=== PATIENT | female | born 1990 | race Caucasian/White ===

== ENCOUNTER 2016-10-05 19:13 | Emergency (ER) | payer BC ==
--- NOTE | 2016-10-05 19:29 | EDPHY ---
H & P Stated Complaint: flu symptoms HPI/ROS: CHIEF COMPLAINT: "I'm guessing it's just the flu" HISTORY OF PRESENT ILLNESS: The patient is a 26 y/o female complaining of a fever for the last 3 days. She has been using Tylenol and ibuprofen for her fever and feels like she is getting worse. Her last dose of 400mg Advil was at 18:15, about an hour prior to arrival in the ED. She complains of associated headache, lateral neck pain when turning her head, nausea, cough, sore throat, rash, and chills. She denies vomiting, though she endorses constipation over the last few days. No recent travel. She reports she has "immunodysregulation" that causes fluctuation of her IgA and IgG without a clear diagnosis that leads to frequent illnesses. She did receive a flu vaccination this season. REVIEW OF SYSTEMS: A ten point review of systems was performed and is negative with the exception of the items mentioned in the HPI. Chronic constipation. Source: Patient Exam Limitations: No limitations - Personal History LMP (Females 10-55): 1-7 Days Ago Current Tetanus/Diphtheria Vaccine: Yes Current Tetanus Diphtheria and Acellular Pertussis (TDAP): Yes - Medical/Surgical History PMH: Immunodysregulation without clear autoimmune diagnosis. Hx Asthma: No Hx Chronic Respiratory Disease: No Hx Diabetes: No Hx Cardiac Disease: No Hx Renal Disease: No Hx Cirrhosis: No Hx Alcoholism: No Hx HIV/AIDS: No Hx Splenectomy or Spleen Trauma: No Other PMH: immuno disregulation - Social History Smoking Status: Never smoked Additional Social History: Nonsmoker. No alcohol. No illicit drugs. 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 - Physical Exam Exam: General Appearance: Alert. Vital signs reviewed. Heart rate 114 at triage, 76 during assessment. Afebrile. Head: No sinus tenderness. Eyes: Pupils equal and round, no conjunctival injection, no discharge. Anicteric. ENT, Mouth: Mucous membranes are moist, no oropharyngeal erythema or edema. Neck: Tenderness over anterior cervical lymph nodes with mild lymphadenopathy, supple, negative Kernig's and Brudzinski's. Respiratory: Lungs are clear to auscultation; no wheezes, rales, or rhonchi. Cardiovascular: Tachycardic; no murmur, rub, or gallop. Gastrointestinal: Abdomen is soft with diffuse mild tenderness, no peritoneal signs.no masses or organomegaly, bowel sounds normal. Skin: Warm and dry, no rashes on exposed skin, normal color. Back: Nontender to palpation over the thoracolumbar spine. No CVAT. Extremities: No lower extremity edema, no calf tenderness or swelling. Neurological: Alert and oriented. Moving all four extremities easily and equally. CN 2-12 examined and intact (VA not tested). Strength 5/5 all major motor groups. Sensation intact to light touch over all four extremities. Psychiatric: Normal affect. Constitutional: Initial Vital Signs Temperature (C) 37.4 C 10/05/16 19:19 Heart Rate 114 H 10/05/16 19:19 Respiratory Rate 20 10/05/16 19:19 Blood Pressure 107/82 H 10/05/16 19:19 O2 Sat (%) 93 10/05/16 19:19 O2 Delivery Mode Room Air Allergies/Adverse Reactions: amoxicillin trihydrate [From Augmentin] Allergy (Verified 10/05/16 19:17) potassium clavulanate [From Augmentin] Allergy (Verified 10/05/16 19:17) Home Medications: Medication Instructions Recorded Bcp 10/05/16 Lamictal 10/05/16 Sennosides 10/05/16 Medical Decision Making ED Course/Re-evaluation: Flu swab ordered. 650mg PO Tylenol administered. IV established. 1L IV NS administered. 2010: Patient's flu swab is positive for flu B. I've discussed this with her and recommended standard viral syndrome care instructions. She agrees with this plan. I doubt meningitis, but she has complained of headache in the setting of fever. No meningeal signs on exam and normal neuro exam. She and I discussed viral vs bacterial meningitis. She has had meningitis vaccine. We discussed lumbar puncture. She understands that meningitis could be ruled out/in with LP. Given that she is neurologically normal she states that she does not wish to proceed with LP. She is capable of making her own medical decisions and understands that bacterial meningitis is a deadly illness. 2129: Reassessed patient. She feels improved after 2L IV NS and 1 tab PO Vicodin for her headache and is ready to go home. Return precautions given. Vital signs WNL at NC. Differential Diagnosis: I considered a differential that includes but is not limited to influenza, other viral syndrome, meningitis (viral and bacterial), pharyngitis, and pneumonia. - Data Points Medications Given: Discontinued Medications Acetaminophen (Tylenol) 650 mg PO EDNOW ONE Stop: 10/05/16 19:47 Last Admin: 10/05/16 20:09 Dose: 650 mg Hydrocodone Bitart/Acetaminophen ([place] 5/325) 1 tab PO EDNOW ONE Stop: 10/05/16 21:09 Last Admin: 10/05/16 21:10 Dose: 1 tab Sodium Chloride (Ns) 1,000 mls @ 0 mls/hr IV ONCE ONE PRN Reason: Wide Open Stop: 10/05/16 19:46 Last Admin: 10/05/16 19:57 Dose: 1,000 mls Sodium Chloride (Ns) 1,000 mls @ 0 mls/hr IV ONCE ONE PRN Reason: Wide Open Stop: 10/05/16 20:59 Last Admin: 10/05/16 20:58 Dose: 1,000 mls Ondansetron HCl (Zofran Odt 4 Mg Prepack#2) 1 btl TAKEHOME EDNOW ONE Stop: 10/05/16 20:17 Last Admin: 10/05/16 21:04 Dose: 1 btl Departure - Departure Disposition: Home, Routine, Self-Care Clinical Impression: Influenza B, Viral syndrome Condition: Good Instructions: Influenza (ED), Viral Syndrome (ED) Additional Instructions: 1. Use Tylenol and ibuprofen as directed for fever and pain. 2. Increase fluid intake. 3. Use Zofran as prescribed if needed for nausea or vomiting. 4. Practice good hand hygiene and limit contact with others while you have a fever as you are contagious. 5. Follow up with your primary care provider for symptoms not improved over the next 1-2 weeks. Adult Pain & Fever Control: We recommend Acetaminophen (Tylenol) and Ibuprofen (Motrin,Advil) for pain and fever control. When fever is high or pain severe, both drugs can be used at the same time, but at different intervals. Please note the time differences. Your dose is: Acetaminophen 650mg every 4 to 6 hours Ibuprofen 600mg every 6-8 hours with food Note: do not take Acetaminophen with Hydrocodone (Vicodin, Lortab) or Oxycodone (Percocet). These medications also contain Acetaminophen. No more than 3000mg of Acetaminophen should be taken in 24 hours (for an adult). Referrals: [facility],. [Clinic] - As per Instructions MEHREEN SILVA [Medical Doctor] - As per Instructions Report Scribed for: Magaly aCbrera Report Scribed by: Adelaida Mabry Date of Report: 10/05/16 Time of Report: 19:32 Physician Review and Approval Statement: 10/05/16 19:28 Portions of this note were transcribed by the medical office scheduler. I, Dr. Magaly Cabrera, personally performed the history, physical exam, and medical decision- making; and confirmed the accuracy of the information in the transcribed note.
[2016-10-05] MEDS ORDERED: NS 1,000 ML IV ONE ×2 (19:45→20:58)
[2016-10-05] MEDS ORDERED: ACETAMINOPHEN 325 MG TAB PO ONE (19:46)
[2016-10-05] MEDS ORDERED: ONDANSETRON 4MG PREPACK#2 BTL TAKEHOME ONE (20:16)
[2016-10-05] MEDS ORDERED: HYDROCODONE/APAP 10/325 TAB ONE (21:08)
[2016-10-05] MEDS ORDERED: HYDROCODONE/APAP 5/325 TAB PO ONE (21:08)
[2016-10-05 21:54] VITALS: BP 112/79; PULSE 79; RESP 16; TEMP 97.9; O2SAT 94
== END 2016-10-05 21:54 | disposition home or self-care (01) ==
DX: J10.1 Influenza due to other identified influenza virus with other respiratory manifestations (principal); B34.9 Viral infection, unspecified

== ENCOUNTER 2017-04-24 13:32 | Emergency (ER) | payer BC ==
[2017-04-24 14:16] LABS: % IMMATURE GRANULYOCYTES 0.3 % (0.0-1.1); ABSOLUTE IMMATURE GRANULOCYTES 0.02 10^3/uL (0.00-0.10); ADD DIFF? NO; ADD MORPH? NO; ADD SCAN? NO; ATYPICAL LYMPHOCYTE FLAG 20 (0-99); FRAGMENT RBC FLAG 0 (0-99); HEMATOCRIT 42.7 % (38.0-47.0); HEMOGLOBIN 14.5 g/dL (12.6-16.3); LEFT SHIFT FLG 0 (0-99); LIPEMIA HEMOLYSIS FLAG 90 (0-99); MEAN CELL HEMOGLOBIN 29.7 pg (27.9-34.1); MEAN CELL VOLUME 87.3 fL (81.5-99.8); MEAN PLATELET VOLUME 9.8 fL (8.7-11.7); PLATELET CLUMPS FLAG 10 (0-99); PLATELET COUNT 259 10^3/uL (150-400); RED BLOOD CELL COUNT 4.89 10^6/uL (4.18-5.33); RED CELL DISTRIBUTION WIDTH 14.2 % (11.5-15.2)
[2017-04-24 14:18] LABS: COLOR AMBER; LEUKOCYTE ESTERASE,URINE NEGATIVE (NEGATIVE); NITRITE,URINE NEGATIVE (NEGATIVE)
--- NOTE | 2017-04-24 14:24 | EDPHY ---
H & P Stated Complaint: rlq abd pain Time Seen by Provider: 04/24/17 13:52 HPI/ROS: CHIEF COMPLAINT: Right lower quadrant pain HISTORY OF PRESENT ILLNESS: The patient presents to the ED with a 3 day history of constant slightly progressive right lower quadrant pain. The patient reports associated nausea but denies vomiting or fever. She has no complaints of vaginal bleeding, dysuria or vaginal discharge. The patient has no significant abdominal surgical history. The patient does have a history of mild IBS which typically results and symptoms of constipation which she takes a daily laxative for. The patient reports mild anorexia. She currently rates her pain as a 3/10. She denies any additional acute complaints. REVIEW OF SYSTEMS: A comprehensive 10 point review of systems is otherwise negative aside from elements mentioned in the history of present illness. Source: Patient Exam Limitations: No limitations - Personal History LMP (Females 10-55): 8-14 Days Ago Current Tetanus/Diphtheria Vaccine: Yes - Medical/Surgical History Hx Asthma: No Hx Chronic Respiratory Disease: No Hx Diabetes: No Hx Cardiac Disease: No Hx Renal Disease: No Hx Cirrhosis: No Hx Alcoholism: No Hx HIV/AIDS: No Hx Splenectomy or Spleen Trauma: No Other PMH: immuno disregulation - Social History Smoking Status: Never smoked - Physical Exam Exam: General Appearance: Alert, no distress Eyes: Pupils equal and round no pallor or injection ENT, Mouth: Mucous membranes moist Respiratory: There are no retractions, lungs are clear to auscultation Cardiovascular: Regular rate and rhythm Gastrointestinal: Tenderness to palpation in the right lower quadrant, positive Rovsing Neurological: A&O, normal motor function, normal sensory exam, normal cranial nerves Skin: Warm and dry, no rashes Musculoskeletal: Neck is supple nontender Extremities: symmetrical, full range of motion Constitutional: Initial Vital Signs Temperature (C) 36.9 C 04/24/17 13:44 Heart Rate 72 04/24/17 13:44 Respiratory Rate 17 04/24/17 13:44 Blood Pressure 98/64 L 04/24/17 13:44 O2 Sat (%) 97 04/24/17 13:44 O2 Delivery Mode Room Air Allergies/Adverse Reactions: amoxicillin trihydrate [From Augmentin] Allergy (Verified 04/24/17 13:44) potassium clavulanate [From Augmentin] Allergy (Verified 04/24/17 13:44) Home Medications: Medication Instructions Recorded Bcp 10/05/16 Lamictal 10/05/16 Sennosides 10/05/16 LYRICA 04/24/17 Medical Decision Making - Diagnostics Imaging Results: Imaging Impressions Abdomen Ultrasound 04/24/17 14:10 Impression: Appendix not visualized. No secondary signs of appendicitis in the visualized right lower quadrant. Dr. Dillon discussed these findings by telephone with Bob Arambula at 2016 15:04. ED Course/Re-evaluation: The patient presents the ED for evaluation of 3-4 day history of abdominal pain. The patient has tenderness to palpation in her right lower quadrant. She has a mild Rovsing sign. She is afebrile. She has no significant leukocytosis. The patient's examination is suggestive of possible appendicitis. I 1st attempted an abdominal ultrasound which was unable to visualize any evidence of a normal appendix or an abnormal appendix. I re-evaluated the patient at 3:40 p.m.. She continues to have ongoing tenderness. In the absence of any fever or leukocytosis I do feel that a CT scan of the abdomen pelvis is indicated to exclude appendicitis which is felt to be low likelihood but not entirely excluded. CT scan abdomen pelvis confirms constipation but demonstrates no evidence of acute appendicitis. Based upon the patient's presentation I feel the etiology of her symptoms are secondary to obstipation and constipation. The patient will be instructed to use MiraLax and milk of magnesia. I would like her to return to the ED for recheck in 12 hours for any ongoing abdominal pain. Differential Diagnosis: Differential diagnosis considered includes appendicitis, ectopic , urinary tract infection, pancreatitis, ovarian cyst - Data Points Laboratory Results: Laboratory Results 04/24/17 14:03 04/24/17 14:03 04/24/17 04/24/17 04/24/17 14:03 14:03 14:03 WBC RBC Hgb Hct MCV MCH MCHC RDW Plt Count MPV Neut % (Auto) Lymph % (Auto) [place] % (Auto) Eos % (Auto) Baso % (Auto) Nucleat RBC Rel Count Absolute Neuts (auto) Absolute Lymphs (auto) Absolute Monos (auto) Absolute Eos (auto) Absolute Basos (auto) Absolute Nucleated RBC Immature Gran % Immature Gran # Sodium 136 mEq/L mEq/L (134-144) Potassium 3.9 mEq/L mEq/L (3.5-5.2) Chloride 104 mEq/L mEq/L (97-110) Carbon Dioxide 22 mEq/l mEq/l (22-31) Anion Gap 10 mEq/L mEq/L (8-16) BUN 13 mg/dL mg/dL (7-23) Creatinine 0.7 mg/dL mg/dL (0.6-1.0) Estimated GFR > 60 Glucose 73 mg/dL mg/dL (70-100) Calcium 9.2 mg/dL mg/dL (8.5-10.4) Beta HCG, Qual NEGATIVE Urine Color [place] Urine Appearance MODERATELY TURBID Urine pH 7.0 (5.0-7.5) Ur Specific [place] 1.031 H (1.002-1.030) Urine Protein NEGATIVE (NEGATIVE) Urine Ketones TRACE H (NEGATIVE) Urine Blood NEGATIVE (NEGATIVE) Urine Nitrate NEGATIVE (NEGATIVE) Urine Bilirubin NEGATIVE (NEGATIVE) Urine Urobilinogen NEGATIVE EU EU (0.2-1.0) Ur Leukocyte Esterase NEGATIVE (NEGATIVE) Urine Glucose NEGATIVE (NEGATIVE) 04/24/17 14:03 WBC 7.32 10^3/uL 10^3/uL (3.80-9.50) RBC 4.89 10^6/uL 10^6/uL (4.18-5.33) Hgb 14.5 g/dL g/dL (12.6-16.3) Hct 42.7 % % (38.0-47.0) MCV 87.3 fL fL (81.5-99.8) MCH 29.7 pg pg (27.9-34.1) MCHC 34.0 g/dL g/dL (32.4-36.7) RDW 14.2 % % (11.5-15.2) Plt Count 259 10^3/uL 10^3/uL (150-400) MPV 9.8 fL fL (8.7-11.7) Neut % (Auto) 54.2 % % (39.3-74.2) Lymph % (Auto) 38.0 % % (15.0-45.0) [place] % (Auto) 5.9 % % (4.5-13.0) Eos % (Auto) 1.1 % % (0.6-7.6) Baso % (Auto) 0.5 % % (0.3-1.7) Nucleat RBC Rel Count 0.0 % % (0.0-0.2) Absolute Neuts (auto) 3.97 10^3/uL 10^3/uL (1.70-6.50) Absolute Lymphs (auto) 2.78 10^3/uL 10^3/uL (1.00-3.00) Absolute Monos (auto) 0.43 10^3/uL 10^3/uL (0.30-0.80) Absolute Eos (auto) 0.08 10^3/uL 10^3/uL (0.03-0.40) Absolute Basos (auto) 0.04 10^3/uL 10^3/uL (0.02-0.10) Absolute Nucleated RBC 0.00 10^3/uL 10^3/uL (0-0.01) Immature Gran % 0.3 % % (0.0-1.1) Immature Gran # 0.02 10^3/uL 10^3/uL (0.00-0.10) Sodium Potassium Chloride Carbon Dioxide Anion Gap BUN Creatinine Estimated GFR Glucose Calcium Beta HCG, Qual Urine Color Urine Appearance Urine pH Ur Specific [place] Urine Protein Urine Ketones Urine Blood Urine Nitrate Urine Bilirubin Urine Urobilinogen Ur Leukocyte Esterase Urine Glucose Departure - Departure Disposition: Home, Routine, Self-Care Clinical Impression: Constipation Abdominal pain Qualifiers: Abdominal location: right lower quadrant Qualified Code(s): R10.31 - Right lower quadrant pain Condition: Good Instructions: Acute Abdominal Pain (ED) Additional Instructions: 1. Please take milk of magnesia, MiraLax and increase your fluid intake as you have constipation is likely cause of your abdominal pain today. 2. Sometimes we are unable to diagnose an obvious cause of abdominal pain in the Emergency Department. Based upon our evaluation today, I believe your symptoms are secondary to constipation. Because more serious conditions can be difficult to diagnose early in the course of their presentation, we ask that you return to the Emergency Department in 8-12 hours for a recheck if you are still having pain. This is necessary to exclude the development of a more serious condition such as appendicitis or other intra-abdominal emergency. In the event your pain markedly increases before that time or you develop intractable vomiting or fever return to the Emergency Department immediately. Referrals: [facility] [Other] - As per Instructions
[2017-04-24 14:26] LABS: ANION GAP 10 mEq/L (8-16); CALCIUM 9.2 mg/dL (8.5-10.4); CARBON DIOXIDE 22 mEq/l (22-31); CHLORIDE 104 mEq/L (97-110); CREATININE 0.7 mg/dL (0.6-1.0); GLOMERULAR FILTRATION RATE > 60; GLUCOSE 73 mg/dL (70-100); POTASSIUM 3.9 mEq/L (3.5-5.2); SODIUM 136 mEq/L (134-144)
[2017-04-24] MEDS ORDERED: IOPAMIDOL (ISOVUE-300) 100 ML BTL ONE (15:48)
[2017-04-24 16:46] VITALS: BP 118/76; PULSE 78; RESP 16; TEMP 98.2; O2SAT 94
== END 2017-04-24 16:46 | disposition home or self-care (01) ==
DX: K59.00 Constipation, unspecified (principal)
CPT/HCPCS: Q9967

== ENCOUNTER → 2019-01-15 | Outpatient (CLI) | payer BC | LOC: BMCIMAGING 16:54 ==

== ENCOUNTER → 2019-01-18 | Outpatient (CLI) | payer BC | LOC: FIMAGING 14:29 ==